=== PATIENT | female | born 1985 | race Caucasian/White ===

== ENCOUNTER 2020-11-28 19:17 | Inpatient (IN) | payer MEDICAID, SELFPAY ==
[~2020-11-28] VITALS: Ht 157.5 cm; Wt 74.4 kg
[2020-11-28 19:20] VITALS: BP 103/50
[2020-11-28 20:01] LABS: APPEARANCE,URINE SL CLOUDY (CLEAR); BILIRUBIN,URINE NEGATIVE (NEGATIVE); BLOOD, URINE NEGATIVE (NEGATIVE); COLOR,URINE YELLOW (YELLOW); LEUKOCYTE ESTERASE ,URINE NEGATIVE (NEGATIVE); NITRITE, URINE NEGATIVE (NEGATIVE); UGLUCOSE NEGATIVE (NEGATIVE)
[2020-11-28 20:09] LABS: BARBITURATE, URINE NEGATIVE ng/ml (NEG <=200); BENZODIAZEPINE, URINE POSITIVE ng/mL (NEG <=200); CANNABINOID, URINE POSITIVE ng/mL (NEG <=50); COCAINE, URINE NEGATIVE ng/mL (NEG <=300); OPIATE, URINE NEGATIVE ng/mL (NEG <=2000); PHENCYCLIDINE SCREEN,URINE NEGATIVE ng/mL (NEG <=25)
[2020-11-28 20:12] LABS: RBC,URINE NONE SEEN /HPF (0-5); WBC,URINE 0-5 /HPF (0-5); YEAST,URINE Few /HPF (None Seen)
[2020-11-28 20:16] LABS: ALBUMIN 4.1 g/dL (3.4-5.0); ANION GAP 17.3 (8-16); ASPARTATE AMINOTRANSFERASE 26 U/L (15-37); CARBON DIOXIDE 23.6 mmol/L (21-32); CHLORIDE 102 mmol/L (98-107); CREATININE 0.9 mg/dL (0.6-1.3); FREE T4 (FREE THYROXINE) 1.22 ng/dL (0.76-1.46); GFR ARICAN-AMERICAN 91 mL/min (>90); GLUCOSE 119 mg/dL (74-106); POTASSIUM 3.9 mmol/L (3.5-5.1); SODIUM SERUM 139 mmol/L (136-145); THYROID STIMULATING HORMONE 1.41 uIU/mL (0.34-3.74); TOTAL BILIRUBIN 0.7 mg/dL (0.0-1.0); UREA NITROGEN, BLOOD 12 mg/dL (7-18)
[2020-11-28 20:19] LABS: ACETAMINOPHEN < 0.5 ug/ml (10-30); SALICYLATE < 2.8 mg/dL (2.8-20.0)
[2020-11-28 20:40] LABS: CKMB RELATIVE INDEX 1.9 (0.0-2.5); CREATINE KINASE MB 8.1 ng/mL (0-3.6)
[2020-11-28] MEDS ORDERED: NACL 0.9% 1,000 ML IV ONE (20:45)
[2020-11-28] MEDS ORDERED: LORazepam 2 MG/ML VIAL IM ONE (20:50)
[2020-11-28] MEDS: QUEtiapine FUMARATE 100 MG TAB PO SCH (20:57)
[2020-11-28 21:42] LABS: BASOPHILS # (AUTO) 0.1 K/uL (0.00-0.22); BASOPHILS % (AUTO) 1.2 % (0.0-2.0); EOSINOPHILS % (AUTO) 0.3 % (0.0-4.0); HEMATOCRIT 36.1 % (36-48); HEMOGLOBIN 11.8 g/dL (12.0-16.0); LYMPHOCYTES # (AUTO) 1.7 K/uL (2.5-16.5); LYMPHOCYTES % (AUTO) 19.4 % (20.5-51.1); MEAN CORPUSCULAR HEMOGLOBIN 26 pg (27-31); MEAN CORPUSCULAR HGB CONC 33 g/dL (33-37); MEAN CORPUSCULAR VOLUME 80.9 fL (80-94); MONOCYTES # (AUTO) 0.7 K/uL (0.8-1.0); MONOCYTES % (AUTO) 7.9 % (1.7-9.3); NEUTROPHILS # (AUTO) 6.3 K/uL (1.8-7.7); NEUTROPHILS % (AUTO) 71.2 % (42.2-75.2); PLATELET COUNT (AUTO) 444 K/uL (140-450); RED BLOOD CELL COUNT(AUTO) 4.47 MIL/uL (4.20-5.40); RED CELL DISTRIBUTION WIDTH 17.5 % (11.6-13.7); WHITE BLOOD COUNT (AUTO) 8.9 K/uL (4.8-10.8)
[2020-11-28] MEDS ORDERED: NACL 0.9% 1,000 ML IV SCH (21:50)
[2020-11-28] MEDS ORDERED: ACETAMINOPHEN 325 MG TAB PO PRN (22:25)
[2020-11-28] MEDS ORDERED: POTASSIUM CHLORIDE 10 MEQ TABER PO PRN (22:25)
[2020-11-28] MEDS ORDERED: ZOLPIDEM 5 MG TAB PO PRN (22:25)
[2020-11-28] MEDS ORDERED: DOCUSATE SODIUM 100 MG GELCAP PO PRN (22:25)
[2020-11-28] MEDS: NACL 0.9% 1,000 ML IV SCH ×2 (22:25→23:38)
[2020-11-28] MEDS ORDERED: ONDANSETRON 4 MG/2 ML VIAL IM/IVP PRN (22:25)
[2020-11-28] MEDS ORDERED: guaiFENesin DM 200/20 MG-10 ML 10 ML UDC PO PRN (22:25)
[2020-11-28] MEDS ORDERED: FLUCONAZOLE 100 MG TAB PO SCH (22:30)
[2020-11-28] MEDS ORDERED: NACL 0.9% 2,000 ML IV ONE (22:30)
[2020-11-28 23:02] LABS: CHOL/HDL RATIO 3.5 (1-4.5); FREE T4 (FREE THYROXINE) 1.27 ng/dL (0.76-1.46); MAGNESIUM 1.7 mg/dL (1.8-2.4); PHOSPHORUS 3.2 mg/dL (2.5-4.9)
[2020-11-28] MEDS ORDERED: BUS5 PO (23:23)
[2020-11-28] MEDS ORDERED: ALPR1TAB2 PO (23:23)
[2020-11-28] MEDS ORDERED: QUET200T PO (23:25)
[2020-11-28] MEDS ORDERED: TEMA15CA24 PO (23:25)
[2020-11-28 23:30] LABS: PROTHROMBIN TIME 11.6 secs (10.8-13.4)
[2020-11-29 06:28] LABS: BASOPHILS % (AUTO) 1.1 % (0.0-2.0); EOSINOPHILS # (AUTO) 0.1 K/uL (0-0.4); EOSINOPHILS % (AUTO) 1.8 % (0.0-4.0); HEMATOCRIT 28.6 % (36-48); HEMOGLOBIN 9.2 g/dL (12.0-16.0); LYMPHOCYTES # (AUTO) 1.5 K/uL (2.5-16.5); LYMPHOCYTES % (AUTO) 35.4 % (20.5-51.1); MEAN CORPUSCULAR HEMOGLOBIN 27 pg (27-31); MEAN CORPUSCULAR HGB CONC 32 g/dL (33-37); MEAN CORPUSCULAR VOLUME 81.8 fL (80-94); MONOCYTES # (AUTO) 0.5 K/uL (0.8-1.0); MONOCYTES % (AUTO) 10.9 % (1.7-9.3); NEUTROPHILS # (AUTO) 2.1 K/uL (1.8-7.7); NEUTROPHILS % (AUTO) 50.8 % (42.2-75.2); PLATELET COUNT (AUTO) 293 K/uL (140-450); RED BLOOD CELL COUNT(AUTO) 3.49 MIL/uL (4.20-5.40); RED CELL DISTRIBUTION WIDTH 17.3 % (11.6-13.7); WHITE BLOOD COUNT (AUTO) 4.2 K/uL (4.8-10.8)
[2020-11-29 06:31] LABS: ANION GAP 11.7 (8-16); CARBON DIOXIDE 23.9 mmol/L (21-32); CREATININE 0.6 mg/dL (0.6-1.3); POTASSIUM 3.6 mmol/L (3.5-5.1)
[2020-11-29] MEDS: PANTOPRAZOLE 40 MG TABEC PO SCH (09:00)
[2020-11-29 12:00] VITALS: BP 128/69
[2020-11-29] MEDS: NACL 0.9% 1,000 ML IV SCH (15:06)
[2020-11-29 16:00] VITALS: BP 116/83
[2020-11-29] MEDS: HYDROcodone/APAP 7.5/325 MG 1 TAB PO PRN (17:29)
[2020-11-29] MEDS: QUEtiapine FUMARATE 100 MG TAB PO SCH (20:50)
[2020-11-30] MEDS: NACL 0.9% 1,000 ML IV SCH (07:45)
[2020-11-30 08:00] VITALS: BP 107/70
[2020-11-30] MEDS: PANTOPRAZOLE 40 MG TABEC PO SCH (08:44)
[2020-11-30] MEDS: HYDROcodone/APAP 7.5/325 MG 1 TAB PO PRN ×2 (08:49→15:56)
[2020-11-30] MEDS ORDERED: QUEtiapine FUMARATE 100 MG TAB PO SCH ×2 (09:00→21:00)
[2020-11-30 16:00] VITALS: BP 146/89
[2020-11-30 20:00] VITALS: BP 142/84
[2020-11-30] MEDS: QUEtiapine FUMARATE 100 MG TAB PO SCH (22:31)
[2020-12-01] VITALS: BP 135/78
[2020-12-01] MEDS: NACL 0.9% 1,000 ML IV SCH (00:25)
[2020-12-01 04:00] VITALS: BP 141/74
[2020-12-01] MEDS: PANTOPRAZOLE 40 MG TABEC PO SCH (09:27)
[2020-12-01] MEDS: QUEtiapine FUMARATE 100 MG TAB PO SCH (09:28)
[2020-12-03] MEDS ORDERED: HYDROCOLLOID DRESSING TP SCH (13:00)
== END 2020-12-01 14:20 | disposition left against medical advice (07) | DRG 190 ==
LOC: MED 19:17 → UNDOADMIN 21:56 → MTU 21:56
PROVIDERS: ADMIT Family Medicine; ATTEND Family Medicine
DX: I21.4 Non-ST elevation (NSTEMI) myocardial infarction (principal); G92 Toxic encephalopathy; M62.82 Rhabdomyolysis; R45.851 Suicidal ideations; F15.10 Other stimulant abuse, uncomplicated; E83.42 Hypomagnesemia; F17.210 Nicotine dependence, cigarettes, uncomplicated; Z20.822 Contact with and (suspected) exposure to COVID-19; F20.9 Schizophrenia, unspecified; R77.8 Other specified abnormalities of plasma proteins; N39.0 Urinary tract infection, site not specified; F41.9 Anxiety disorder, unspecified; G89.29 Other chronic pain; Z85.3 Personal history of malignant neoplasm of breast; Z90.11 Acquired absence of right breast and nipple
CPT/HCPCS: 36415; 70450; 71045; 80048; 80053; 80305; 81001; 81025; 82150; 82550; 82553; 83036; 83690; 83735; 83880; 84100; 84439; 84443; 84479; 84484; 85025; 85610; 85730; 87081; 87086; 93005; 96360; 96372; 99285; G0480; G0482; J1644; J2060; Q0092; U0003